=== PATIENT | female | born 1990 | race Hispanic/Latino ===

== ENCOUNTER 2017-12-17 10:25 | Emergency (ER) | payer OTHER ==
[2017-12-17 10:39] VITALS: RESP 18; TEMP 98.5
--- NOTE | 2017-12-17 11:00 | ED PDOC ---
HPI: General Adult Time Seen by Provider: 12/17/17 10:48 Chief Complaint (Nursing): GI Problem Chief Complaint (Provider): vomiting, dizziness History Per: Patient Additional Complaint(s): 27 year old female with history of anxiety presents to emergency department with nausea and vomiting that started last Sunday. Patient states that her anxiety symptoms were triggered by a flight she took last Sunday and often when she is anxious she has vomiting and nausea. She has had persistent vomiting since then and is keeping down only small amounts of liquids and solids. Patient states she ate dinner last night and threw everything up this morning. She also feels dizzy and dehydrated. She denies any associated diarrhea , no fever or chills. Patient's is mildly nauseous upon arrival. PMD: none Past Medical History Reviewed: Historical Data, Nursing Documentation, Vital Signs Vital Signs: Last Vital Signs Temp 98.5 F 12/17/17 10:51 Pulse 83 12/17/17 10:51 Resp 18 12/17/17 10:51 BP 112/68 12/17/17 10:51 Pulse Ox 99 12/17/17 12:41 - Medical History PMH: Anxiety - Surgical History Surgical History: Appendectomy - Family History Family History: States: No Known Family Hx - Living Arrangements Living Arrangements: With Family - Social History Current smoker - smoking cessation education provided: No Alcohol: None Drugs: Cannabis - Home Medications Home Medications: Ambulatory Orders Medication Instructions Recorded Ondansetron [Zofran Odt] 4 mg PO ASDIR PRN #20 odt 12/17/17 - Allergies Allergies/Adverse Reactions: Allergies Allergy/AdvReac Type Severity Reaction Status Date / Time No Known Allergies Allergy Verified 12/17/17 10:50 Review of Systems ROS Statement: Except As Marked, All Systems Reviewed And Found Negative Constitutional: Negative for: Fever, Chills, Weakness Cardiovascular: Negative for: Chest Pain Respiratory: Negative for: Cough, Shortness of Breath Gastrointestinal: Positive for: Nausea, Vomiting. Negative for: Abdominal Pain , Diarrhea Psych: Positive for: Anxiety. Negative for: Suicidal ideation Physical Exam - Reviewed Nursing Documentation Reviewed: Yes Vital Signs Reviewed: Yes - Physical Exam Appears: Positive for: Well, Non-toxic, No Acute Distress Skin: Negative for: Rash Eye Exam: Positive for: Normal appearance ENT: Positive for: Normal ENT Inspection Cardiovascular/Chest: Positive for: Regular Rate, Rhythm Respiratory: Positive for: Normal Breath Sounds, Wheezing. Negative for: Respiratory Distress Gastrointestinal/Abdominal: Positive for: Soft. Negative for: Tenderness, Distended, Guarding, Rebound Back: Negative for: L CVA Tenderness, R CVA Tenderness Extremity: Positive for: Normal ROM Neurologic/Psych: Positive for: Alert, Oriented - Laboratory Results Result Diagrams: 12/17/17 12:15 12/17/17 12:15 Urine POC: Negative Urine dip results: Negative for: Leukocyte Esterase, Blood, Nitrate, Ketones, Glucose, Bilirubin, Protein - ECG O2 Sat by Pulse Oximetry: 99 Pulse Ox Interpretation: Normal Medical Decision Making Medical Decision Makin27 year old with anxiety and vomiting Plan: Urine dip and test CBC CMP Lipase IVF Zofran ODT Patient still feels mildly nauseous after Zofran dose was given, additional 4 mg ODT tablet provided along with 20 mg Pepcid. Patient now feels better after second dose and is now tolerating water without any further emesis. Patient is aware of all diagnostic testing results, all questions answered. Prescription provided for Zofran. Patient was instructed to follow up with primary doctor. Disposition - Clinical Impression Clinical Impression: Anxiety, Vomiting - Patient ED Disposition Is Patient to be Admitted: No Counseled Patient/Family Regarding: Studies Performed, Diagnosis, Need For Followup, Rx Given - Disposition Referrals: [facility] [Outside] Disposition: Routine/Home Disposition Time: 14:15 Condition: IMPROVED Additional Instructions: Drink plenty of clear fluids and follow bland diet. Prescription meds as directed as needed for nausea and vomiting. Follow-up with primary doctor in 2- 3 days. Prescriptions: Ondansetron [Zofran Odt] 4 mg PO ASDIR PRN #20 odt PRN Reason: Nausea/Vomiting Instructions: Anxiety, Adult (DC), Nausea and Vomiting, Adult (DC) Forms: Ripl (Romansh) Results - Lab Results Lab Results: 12/17/17 12/17/17 12:15 12:15 WBC 7.2 RBC 4.54 Hgb 13.7 Hct 39.9 MCV 88.0 MCH 30.2 MCHC 34.4 RDW 13.1 Plt Count 232 MPV 7.6 Neut % (Auto) 77.3 H Lymph % (Auto) 17.3 L Coles % (Auto) 3.4 Eos % (Auto) 1.5 Baso % (Auto) 0.5 Neut # (Auto) 5.5 Lymph # (Auto) 1.2 Coles # (Auto) 0.2 Eos # (Auto) 0.1 Baso # (Auto) 0.0 Sodium 146 Potassium 4.5 Chloride 105 Carbon Dioxide 29 Anion Gap 17 BUN 10 Creatinine 0.8 Est GFR ( Amer) > 60 Est GFR (Non-Af Amer) > 60 Random Glucose 105 Calcium 9.3 Total Bilirubin 0.3 AST 11 L ALT 22 Alkaline Phosphatase 51 Total Protein 7.2 Albumin 4.0 Globulin 3.2 Albumin/Globulin Ratio 1.3 Lipase 201
[2017-12-17] MEDS ORDERED: Sodium Chloride 0.9% 1,000 ML IV STA (11:32)
[2017-12-17 12:35] LABS: BASO % 0.5 % (0.0-2.0); EOS # 0.1 K/uL (0.0-0.7); EOS % 1.5 % (0.0-4.0); HEMOGLOBIN 13.7 g/dL (12.0-16.0); LYMPH # 1.2 K/uL (1.0-4.3); LYMPH % 17.3 % (20.0-40.0); MEAN CORPUSCULAR HEMOGLOBIN 30.2 pg (27.0-31.0); MEAN CORPUSCULAR HGB CONC 34.4 g/dL (33.0-37.0); MEAN PLATELET VOLUME 7.6 fl (7.2-11.7); MONO # 0.2 K/uL (0.0-0.8); MONO % 3.4 % (0.0-10.0); NEUT # 5.5 K/uL (1.8-7.0); NEUT % 77.3 % (50.0-75.0); RBC 4.54 Mil/uL (3.80-5.20); RED CELL DISTRIBUTION WIDTH 13.1 % (11.5-14.5); WHITE BLOOD COUNT 7.2 K/uL (4.8-10.8)
[2017-12-17 12:36] LABS: ALB/GLOB RATIO 1.3 (1.0-2.1); ALT/SGPT 22 U/L (9-52); AST/SGOT 11 U/L (14-36); BLOOD UREA NITROGEN 10 mg/dl (7-17); CALCIUM 9.3 mg/dL (8.4-10.2); GFR AFRICAN-AMERICAN > 60; GFR NON-AFRICAN AMERICAN > 60; LIPASE 201 U/L (23-300)
[2017-12-17 15:56] VITALS: BP 104/56; PULSE 66; O2SAT 98
== END 2017-12-17 15:56 | disposition home or self-care (01) ==
LOC: H.ER 10:25
DX: F41.9 Anxiety disorder, unspecified (principal); R11.10 Vomiting, unspecified
CPT/HCPCS: 80053; 81025; 83690; 85025; 99283; J7040